=== PATIENT | male | born 1985 | race American Indian/Alaskan Native ===

== ENCOUNTER 2016-12-23 02:16 | Emergency (ER) | payer MEDICAID ==
[2016-12-23 03:06] VITALS: BP 147/91
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
[2016-12-23] MEDS ORDERED: NORCO 5/325 PO ONE (04:07)
== END 2016-12-23 06:05 | disposition home or self-care (01) ==
LOC: ED 02:16
DX: S20.211S Contusion of right front wall of thorax, sequela (principal); Z72.0 Tobacco use; Y04.2XXA Assault by strike against or bumped into by another person, initial encounter; Y93.89 Activity, other specified; Y99.9 Unspecified external cause status; Y92.89 Other specified places as the place of occurrence of the external cause
CPT/HCPCS: 99283